=== PATIENT | female | born 1975 | race Caucasian/White ===

== ENCOUNTER → 2017-04-13 | Outpatient (CLI) | payer OTHER | LOC: RAD 04:06 | DX: Z12.31 Encounter for screening mammogram for malignant neoplasm of breast (principal) ==

== ENCOUNTER → 2018-03-26 | Outpatient (CLI) | payer OTHER | LOC: RAD 03:08 | DX: Z12.31 Encounter for screening mammogram for malignant neoplasm of breast (principal) ==